=== PATIENT | male | born 1980 | race African-American/Black ===

== ENCOUNTER 2022-12-09 08:10 | Emergency (ER) | payer OTHER, SELFPAY ==
--- NOTE | ~2022-12-09 | US_ITS ---
EXAMINATION: US scrotum doppler DATE: 12/09/2022 11:38 INDICATION: Right testicular pain. TECHNIQUE: Grayscale and Doppler ultrasound images of the testes were obtained. COMPARISON: None. FINDINGS: The right testis measures 5.4 x 4.0 x 3.1 cm. The left testis measures 4.9 x 3.7 x 2.7 cm. There is normal vascular flow to both testes. The right epididymis is enlarged and hypoechoic with in creased vascular flow, consistent with epididymitis. The left epididymis is normal with normal vascul ar flow. There is a moderate-sized loculated right hydrocele. IMPRESSION: 1. Right-sided epididymitis. 2. Moderate-sized loculated right hydrocele. Reviewed, dictated and finalized at location A.
[2022-12-09 08:21] VITALS: BP 118/82; PULSE 71; RESP 17; TEMP 36.9; O2SAT 99
[2022-12-09 08:30] LABS: Basophils Percent Auto 0.3 % (0.2-1.2); Eosinophils Percent Auto 0.3 % (0-4.4); Hematocrit 43.6 % (42.0-52.0); Hemoglobin 14.4 g/dL (14.0-18.0); Immature Granulocyte Absolute 0.01 K/mm3 (0.00-0.031); Immature Granulocyte Percent A 0.1 % (0-0.5); Lymphocytes Absolute Auto 0.98 K/mm3 (0.9-3.2); Lymphocytes Percent Auto 12.8 % (18.3-44.2); Mean Corpuscular Hemoglobin 31.1 pg (26-34); Mean Corpuscular Volume 94.2 fl (80-100); Mean Platelet Volume 9.2 fl (7.4-10.4); Monocytes Absolute Auto 0.4 K/mm3 (0.1-0.6); Monocytes Percent Auto 5.3 % (2.6-8.5); Neutrophils Absolute Auto 6.2 K/mm3 (1.3-6.7); Neutrophils Percent Auto 81.2 % (45.5-73.1); Platelet Count Result 286 k/mm3 (150-375); Red Blood Count 4.63 M/mm3 (4.6-6.20); Red Cell Distribution Width 11.9 % (11.5-14.5); White Blood Count 7.7 K/mm3 (4.5-10.0)
--- NOTE | 2022-12-09 08:32 | ED.ABDPAIN ---
HPI - Abdominal Pain General Chief Complaint: Abdominal Pain Stated Complaint: hernia Time Seen by Provider: 12/09/22 08:32 Source: patient and family Mode of arrival: ambulatory Limitations: no limitations History of Present Illness HPI narrative: 32 years old -[place] male presents to the ED with pain at the right testicular area started 2 weeks ago. He denies any trauma, fever, chills, nausea, vomiting, urinary symptoms or penile discharge. Patient did not see any physician yet. Related Data Allergies Allergy/AdvReac Type Severity Reaction Status Date / Time No Known Allergies Allergy Verified 12/09/22 08:24 Review of Systems Review of Systems: All systems reviewed & are unremarkable except as noted in HPI and below Exam Narrative: General appearance: Well-developed, well-nourished Skin: Normal color Eyes: Clear conjunctiva ENT: Oropharynx normal, ears normal, nose normal Neck: Supple, nontender Chest and respiratory: Airway patent, no respiratory distress, no accessory muscle use Heart: Regular rate/rhythm Abdomen: Soft, nontender, no organomegaly, quiet bowel sounds Vascular: Normal peripheral pulses, normal capillary refill. Musculoskeletal: Normal range of motion, nontender back Neurologic: Alert and oriented ?3, [employer] is normal as tested, no gross motor deficit : Male genitals images: 1. Large sized, tender, firm in consistency of the right testicle 2. Same as above Course Vital Signs Vital signs: Vital Signs Temperature 36.9 C 12/09/22 08:21 Pulse Rate 71 12/09/22 08:21 Respiratory Rate 17 12/09/22 08:21 Blood Pressure 118/82 12/09/22 08:21 Pulse Oximetry 99 12/09/22 08:21 Oxygen Delivery Room Air 12/09/22 08:21 Temperature 36.9 C 12/09/22 08:21 Pulse Rate 65 12/09/22 11:18 Respiratory Rate 18 12/09/22 11:18 Blood Pressure 123/72 12/09/22 11:18 Pulse Oximetry 100 12/09/22 11:18 Oxygen Delivery Room Air 12/09/22 08:21 MDM - Abdominal Pain MDM Narrative Medical decision making narrative: Patient is 32 years old -[place] male presents with right testicular pain and swelling for the last 2 weeks. Physical examination showed diffuse tenderness, enlarged, firm in consistency of the right testicle. Patient denies extramarital affair. Work-up today showed normal CBC, normal chemistry, infected urine with 1+ leukoesterase and 11?20 WBC testicular ultrasound showed right-sided epididymitis, moderate-sized loculated right hydrocele. Epididymitis secondary to STD is a possibility, patient denies any extramarital affair, epididymitis secondary to enteric organisms/none STD related. Patient received 500 mg of Rocephin IM, will be discharged on doxycycline for possible STD and Levaquin for possible enteric organism. Objective: Thank you for the Differential Diagnosis Differential diagnosis: Likely other (Epididymitis, orchitis, testicular tumor, hydrocele, varicocele.) Lab Data 12/09/22 08:26 12/09/22 08:26 Labs: Lab Results 12/09/22 12/09/22 Range/Units 08:26 10:10 WBC 7.7 (4.5-10.0) K/mm3 RBC 4.63 (4.6-6.20) M/mm3 Hgb 14.4 (14.0-18.0) g/dL Hct 43.6 (42.0-52.0) % MCV 94.2 (80-100) fl MCH 31.1 (26-34) pg MCHC 33.0 (32-36) g/dl RDW 11.9 (11.5-14.5) % Plt Count 286 (150-375) k/mm3 MPV 9.2 (7.4-10.4) fl Immature Gran % (Auto) 0.1 (0-0.5) % Neut % (Auto) 81.2 H (45.5-73.1) % Lymph % (Auto) 12.8 L (18.3-44.2) % [place] % (Auto) 5.3 (2.6-8.5) % Eos % (Auto) 0.3 (0-4.4) % Baso % (Auto) 0.3 (0.2-1.2) % Lymph # (Auto) 0.98 (0.9-3.2) K/mm3 [place] # (Auto) 0.4
[2022-12-09 08:40] LABS: Alanine Aminotransferase 22 U/L (6-50); Albumin Level 4.7 g/dL (3.5-5.1); Alkaline Phosphatase 61 U/L (38-126); Anion Gap 6 mmol/L (8-16); Aspartate Amino Transferase 26 U/L (17-59); Bilirubin,Total 0.9 mg/dL (0.2-1.3); Blood Urea Nitrogen 18 mg/dL (9-20); Calcium 9.4 mg/dL (8.4-10.2); Carbon Dioxide 31 mmol/L (22-30); Chloride 101 mmol/L (98-107); Estimated CRCL calculation 114 ml/min; Estimated Glomerular Filt Rate > 60; Glucose 121 mg/dL (65-110); Lipase 19 U/L (23-300); Potassium 4.1 mmol/L (3.4-5.0); Sodium 138 mmol/L (137-145)
--- NOTE | 2022-12-09 09:00 | PC.NURSE ---
Pt attempted to urinate but was unable too
[2022-12-09] MEDS: KETOROLAC 30 MG/ML VIAL (*BKC) IV PUSH (09:03)
[2022-12-09 10:25] LABS: Appearance Urine Cloudy (Clear); Bacteria Urine None Seen /hpf; Bilirubin Urine 1+ (Negative); Blood Urine Negative (Negative); Color Urine Dark Yellow (Yellow); Glucose Urine UA Negative (Negative); Ketones Urine Trace mg/dL (Negative); Leukocyte Esterase Ur 1+ LEU/UL (Negative); Nitrate Urine Negative (Negative); Non Pathogenic Casts 0-2; Protein Urine 1+ mg/dL (Negative); RBC Urine 0-2 /hpf (0-2); Specific Grav Ur 1.034 (1.001-1.035); Squamous Epithelial Cell Urine None seen /hpf (Few)
[2022-12-09 10:27] LABS: Add Urine Microscopic? YES
[2022-12-09 11:18] VITALS: BP 123/72; PULSE 65; RESP 18; O2SAT 100
[2022-12-09 12:17] VITALS: BP 128/70; PULSE 69; RESP 18; O2SAT 100
[2022-12-09] MEDS: cefTRIAXone 1 GM VIAL 0.5 GM IM (12:18)
[2022-12-09] MEDS: LIDOCAINE HCL 1% LOCAL INJ 10 ML VIAL (12:19)
== END 2022-12-09 12:29 | disposition home or self-care (01) ==
PROVIDERS: Emergency Provider Emergency Medicine
DX: N45.1 Epididymitis (principal); N43.3 Hydrocele, unspecified
CPT/HCPCS: 36415; 76870; 80053; 81001; 83690; 85025; 87086; 87088; 93976; 96372; 96374; 99284; J0696; J1885